=== PATIENT | female | born 1990 | race Caucasian/White ===

== ENCOUNTER → 2017-10-19 | Outpatient (CLI) | payer OTHER ==
[~2017-10-19] MED LIST: ACET-1256 PO; ALBUAER19 INH; ALPR-411 PO; AMOX875T PO; BCPILLS PO; CITA10TA4 PO; FEXO1TAB49 PO; PRED10TA PO; TRIA0.1C20 TOP
== END | disposition home or self-care (01) ==
LOC: C.LAB1850 15:01
PROVIDERS: ATTEND Obstetrics & Gynecology
DX: O99.89 Other specified diseases and conditions complicating pregnancy, childbirth and the puerperium (principal); Z3A.00 Weeks of gestation of pregnancy not specified

== ENCOUNTER → 2017-10-21 | Outpatient (CLI) | payer OTHER | END | disposition home or self-care (01) | LOC: C.LAB1850 14:44 | PROVIDERS: ATTEND Obstetrics & Gynecology | DX: O99.89 Other specified diseases and conditions complicating pregnancy, childbirth and the puerperium (principal); Z3A.00 Weeks of gestation of pregnancy not specified ==

== ENCOUNTER → 2017-10-22 | Outpatient (CLI) | payer OTHER | END | disposition home or self-care (01) | LOC: C.LAB1850 12:59 | PROVIDERS: ATTEND Obstetrics & Gynecology | DX: R39.9 Unspecified symptoms and signs involving the genitourinary system (principal) ==

== ENCOUNTER → 2017-10-23 | Outpatient (CLI) | payer OTHER | END | disposition home or self-care (01) | LOC: C.LABSPEC 16:16 | PROVIDERS: ATTEND Physician Assistant | DX: N89.8 Other specified noninflammatory disorders of vagina (principal) ==

== ENCOUNTER 2017-10-27 16:59 | Emergency (ER) | payer OTHER ==
[~2017-10-27] VITALS: Ht 167.6 cm; Wt 95.8 kg
[2017-10-27 17:08] VITALS: TEMP 36.7; Ht 167.6 cm; Wt 95.8 kg
[2017-10-27] MEDS ORDERED: ACETAMINOPHEN 500 MG TAB PO STA (17:26)
[2017-10-27] MEDS ORDERED: SODIUM CHLORIDE 0.9% 1000ML 1,000 ML IV ONE (17:30)
[2017-10-27 18:10] LABS: BASO % 0.3 %; BASO ABS # 0.03 K/uL (0-0.2); EOS % 1.5 %; EOS ABS # 0.14 K/uL (0-0.5); HEMATOCRIT 38.9 % (37-47); HEMOGLOBIN 13.2 g/dL (12.0-16.0); IG# 0.03 K/uL (0.00-0.02); LYMPH ABS # 2.41 K/uL (1.2-3.4); MEAN CELL VOLUME 87.2 fL (80-100); MEAN CORPUSCULAR HEMOGLOBIN 29.6 pg (25-34); MEAN CORPUSCULAR HGB CONC 33.9 g/dl (32-36); MEAN PLATELET VOLUME 9.1 fL (7.4-10.4); MONO % 7.1 %; MONO ABS # 0.68 K/uL (0.11-0.59); NEUT % 65.8 %; NEUT ABS # 6.35 K/uL (1.4-6.5); PLATELET COUNT 330 K/uL (130-400); RED CELL DISTRIBUTION WIDTH CV 12.1 % (11.5-14.5); RED CELL DISTRIBUTION WIDTH SD 38.4 fL (36.4-46.3); WHITE BLOOD COUNT 9.64 K/uL (4.8-10.8)
[2017-10-27 18:30] LABS: ALBUMIN 3.8 gm/dl (3.4-5.0); CALCIUM 8.9 mg/dl (8.5-10.1); CREATININE 0.64 mg/dl (0.60-1.20); POTASSIUM 3.5 mmol/L (3.5-5.1)
[2017-10-27 18:33] LABS: TOTAL PROTEIN 7.7 gm/dl (6.4-8.2)
--- NOTE | 2017-10-27 19:07 | DIAGNOSTIC IMAGING REPORT ---
LIMITED (US) (transabdominal and endovaginal scanning. CLINICAL HISTORY: . Bleeding. COMPARISON STUDY: No previous studies for comparison. FINDINGS: A single alive intrauterine was visualized. The crown-rump length measured 9 mm corresponding to an estimated postmenstrual age of 6 weeks and 6 days. A yolk sac was visualized. Incidental note is made of a maternal 13 mm right paraovarian cyst. There is a left-sided corpus luteum cyst. The heart rate was 130. There is a tiny 3 mm cystic structure just beneath the chorion. IMPRESSION: 1. Single live intrauterine . The estimated postmenstrual age is 6 weeks and 6 days 2. 3 mm subchorionic cystic structure. This is of doubtful acute clinical significance. Electronically signed by: Fly Chaparro M.D. 10/27/2017 7:06 PM Dictated Date/Time: 10/27/2017 7:03 PM
[2017-10-27 20:30] VITALS: BP 143/62; PULSE 80; O2SAT 99
--- NOTE | 2017-10-27 22:35 | EMERGENCY ROOM VISIT NOTE ---
History First contact with patient: 17:12 Chief Complaint: ED VAG BLEEDING Stated Complaint: 7WKS,POSSIBLE MISCARRIAGE,BLEEDING,CLOTS,CRAMPING History of Present Illness The patient is a 27 year old female who presents to the Emergency Room with complaints of vaginal bleeding for the past week. The patient is reportedly with her first , and is just under 7 weeks by dates. She has been in close contact with [facility] over the past week, where she has had 2 beta hCG quantitatives, one ultrasound, and one pelvic exam. She was advised to continue to monitor her symptoms, but states that today the bleeding is different. She was not seen by OB today and elected to come to the ER instead. She is not having significant pain of her abdomen. She is having the blood when she wipes after using the bathroom. She has not been soaking through pads or tampons. Patient has not had fever or chills. She is very anxious about her symptoms and rates her current discomfort a 2/10. She does not identify aggravating or alleviating factors. Review of Systems More than 10 systems were reviewed and otherwise negative with the exception of history of present illness. Past Medical/Surgical History Anxiety and depression Family History No pertinent family history Social History Smoking Status: Never Smoker Drug Use: none Marital Status: in relationship Housing Status: lives with significant other Occupation Status: employed Current/Historical Medications Scheduled Control Pills ( Control Pills), 1 TAB PO HS Citalopram Hydrobromide (Citalopram Hydrobromide), 10 MG PO HS Fexofenadine Hcl (Doreen Allergy), 180 MG PO QAM Prednisone Tab (Prednisone), 10 MG PO QAM Scheduled PRN Acetaminophen (Tylenol), 1,000 MG PO Q4H PRN for Pain Albuterol Inhaler (Ventolin Inhaler), 2 PUFFS INH QID PRN for PRN Alprazolam (Xanax), 0.25 MG PO DAILY PRN for Anxiety Amoxicillin & Pot Clavulanate (Augmentin 875-125 mg), 875 MG PO BID PRN for PRN Triamcinolone Acet 0.1% (Aristocort 0.1%), 1 APPL TOP DAILY PRN for PRN Physical Exam Vital Signs Date Time Temp Pulse Resp B/P (MAP) Pulse Ox O2 Delivery O2 Flow Rate FiO2 10/27/17 20:30 80 16 143/62 99 18 19:53 80 16 143/62 99 Room Air 10/27/17 19:01 77 16 144/78 100 Room Air 10/27/17 17:08 36.7 103 16 137/71 99 Room Air Physical Exam VITALS: Vitals are noted on the nurse's note and reviewed by myself. Vital signs stable. GENERAL: Well-developed, well-nourished, white female, who is very anxious on exam NECK: Supple without nuchal rigidity. No lymphadenopathy. No thyromegaly. Cervical spine is nontender. HEART: Regular rate and rhythm without murmurs gallops or rubs. LUNGS: Clear to auscultation bilaterally without wheezes, rales or rhonchi. No retractions or accessory muscle use. ABDOMEN: Positive normal bowel sounds x 4. Soft, nontender, without masses or organomegaly. No guarding or rebound tenderness. MUSCULOSKELETAL: No muscle atrophy, erythema, or edema noted. Full range of motion in all extremities. Medical Decision & Procedures ER Provider Diagnostic Interpretation: LIMITED (US) (transabdominal and endovaginal scanning. CLINICAL HISTORY: . Bleeding. COMPARISON STUDY: No previous studies for comparison. FINDINGS: A single alive intrauterine was visualized. The crown-rump length measured 9 mm corresponding to an estimated postmenstrual age of 6 weeks and 6 days. A yolk sac was visualized. Incidental note is made of a maternal 13 mm right paraovarian cyst. There is a left-sided corpus luteum cyst. The heart rate was 130. There is a tiny 3 mm cystic structure just beneath the chorion. IMPRESSION: 1. Single live intrauterine . The estimated postmenstrual age is 6 weeks and 6 days 2. 3 mm subchorionic cystic structure. This is of doubtful acute clinical significance. Laboratory Results 10/27/17 17:55 Red Blood Count 4.46, Mean Corpuscular Volume 87.2, Mean Corpuscular Hemoglobin 29.6, Mean Corpuscular Hemoglobin Concent 33.9, Mean Platelet Volume 9.1, Neutrophils (%) (Auto) 65.8, Lymphocytes (%) (Auto) 25.0, Monocytes (%) (Auto) 7.1, Eosinophils (%) (Auto) 1.5, Basophils (%) (Auto) 0.3, Neutrophils # (Auto) 6.35, Lymphocytes # (Auto) 2.41, Monocytes # (Auto) 0.68, Eosinophils # (Auto) 0.14, Basophils # (Auto) 0.03 10/27/17 17:54 Test 10/27/17 17:54 10/27/17 17:55 Anion Gap 7.0 mmol/L (3-11) Est Creatinine Clear Calc Drug Dose 152.6 ml/min Estimated GFR () 140.7 Estimated GFR (Non- 121.4 BUN/Creatinine Ratio 11.2 (10-20) Calcium Level 8.9 mg/dl (8.5-10.1) Total Bilirubin 0.2 mg/dl (0.2-1) Aspartate Amino Transf (AST/SGOT) 13 U/L (15-37) Alanine Aminotransferase (ALT/SGPT) 29 U/L (12-78) Alkaline Phosphatase 96 U/L (45-117) Total Protein 7.7 gm/dl (6.4-8.2) Albumin 3.8 gm/dl (3.4-5.0) Globulin 3.9 gm/dl (2.5-4.0) Albumin/Globulin Ratio 1.0 (0.9-2) Human Chorionic Gonadotropin, Quant 17101 mIU/mL White Blood Count 9.64 K/uL (4.8-10.8) Red Blood Count 4.46 M/uL (4.2-5.4) Hemoglobin 13.2 g/dL (12.0-16.0) Hematocrit 38.9 % (37-47) Mean Corpuscular Volume 87.2 fL (80-100) Mean Corpuscular Hemoglobin 29.6 pg (25-34) Mean Corpuscular Hemoglobin Concent 33.9 g/dl (32-36) Platelet Count 330 K/uL (130-400) Mean Platelet Volume 9.1 fL (7.4-10.4) Neutrophils (%) (Auto) 65.8 % Lymphocytes (%) (Auto) 25.0 % Monocytes (%) (Auto) 7.1 % Eosinophils (%) (Auto) 1.5 % Basophils (%) (Auto) 0.3 % Neutrophils # (Auto) 6.35 K/uL (1.4-6.5) Lymphocytes # (Auto) 2.41 K/uL (1.2-3.4) Monocytes # (Auto) 0.68 K/uL (0.11-0.59) Eosinophils # (Auto) 0.14 K/uL (0-0.5) Basophils # (Auto) 0.03 K/uL (0-0.2) RDW Standard Deviation 38.4 fL (36.4-46.3) RDW Coefficient of Variation 12.1 % (11.5-14.5) Immature Granulocyte % (Auto) 0.3 % Immature Granulocyte # (Auto) 0.03 K/uL (0.00-0.02) Medications Administered Medications (Trade) Dose Ordered Sig/Barbara Route Start Time Stop Time Status Last Admin Dose Admin Acetaminophen (Tylenol Tab) 1,000 mg NOW STAT PO 10/27/17 17:26 10/27/17 17:30 DC 10/27/17 17:43 1,000 MG ED Course Physical exam and history were performed. Nursing notes, EMR, and Medication List were personally reviewed. Patient appears to have reports of vaginal bleeding in the first trimester of . This is her first . She defers pelvic exam. Patient does not appear toxic. She is not soaking through pads regularly, but does report having blood every time she wipes after using the bathroom. IV access was established and labs are obtained. The patient was hydrated with normal saline and sent to ultrasound. She was given Tylenol here in the department. The patient's blood work is as above and was reviewed. She does not have a significantly elevated white blood cell count, gross anemia, bandemia, or significant electrolyte imbalance. Her hCG quantitative is just under 12,000. This is less than expected, but does represent a 3 fold increase in her hCG from a few days ago. She is blood type a positive. The ultrasound is as above and was reviewed by myself and radiology. Ultrasound shows a viable intrauterine with heart rate of 130. I had a lengthy discussion with the patient and her significant other regarding findings today. The patient appears to have a viable intrauterine at this point. She will need very close follow-up with [facility] however, as her hCG is slightly less than expected based on her dates of 6 weeks and 6 days. Patient will need repeat ultrasound and repeat blood work which can be facilitated as an outpatient. She was given thorough instructions about returning to the ER with any new, worsening, or concerning symptoms. The patient voiced understanding and felt much better after evaluation today. Her anxiety was much less and she rated her discomfort as 0/10 at the time of departure. The chart was completed utilizing [employer] Speech Voice Recognition Software. Grammatical errors, random word insertions, pronoun errors, and incomplete sentences are an occasional consequence of this system due to software limitations, ambient noise, and hardware issues. Any formal questions or concerns about the content, text, or information contained within the body of this dictation should be directly addressed to the provider for clarification. . Medical Decision Differential diagnosis: Etiologies such as ectopic , dysfunction uterine bleeding, bleeding dyscrasia, trauma, infection, as well as others were entertained. Impression Primary Impression: First trimester bleeding Departure Information Dispostion Home / Self-Care Condition GOOD Forms HOME CARE DOCUMENTATION FORM, IMPORTANT VISIT INFORMATION Patient Instructions My [facility] Additional Instructions You were seen and evaluated today on an emergency basis only. This is not a substitute for, or an effort to provide, complete comprehensive medical care. It is not possible to recognize and treat all injuries or illnesses in a single emergency department visit. For this reason it is recommended that you followup with your [facility] by telephone tomorrow to arrange appropriate follow-up. You are welcome to return to the emergency department anytime with new, worsening, or concerning symptoms.
== END 2017-10-27 20:30 | disposition home or self-care (01) ==
LOC: C.EDB 17:01 → C.EDA 20:30
DX: Z34.01 Encounter for supervision of normal first pregnancy, first trimester (principal)

== ENCOUNTER → 2017-11-04 | Outpatient (CLI) | payer OTHER ==
[2017-11-04 16:38] LABS: BASO % 0.3 %; BASO ABS # 0.03 K/uL (0-0.2); EOS % 1.3 %; EOS ABS # 0.12 K/uL (0-0.5); HEMATOCRIT 38.4 % (37-47); HEMOGLOBIN 13.2 g/dL (12.0-16.0); IG# 0.02 K/uL (0.00-0.02); LYMPH % 26.1 %; LYMPH ABS # 2.38 K/uL (1.2-3.4); MEAN CELL VOLUME 87.3 fL (80-100); MEAN CORPUSCULAR HGB CONC 34.4 g/dl (32-36); MEAN PLATELET VOLUME 9.3 fL (7.4-10.4); MONO % 5.8 %; MONO ABS # 0.53 K/uL (0.11-0.59); NEUT % 66.3 %; NEUT ABS # 6.04 K/uL (1.4-6.5); PLATELET COUNT 352 K/uL (130-400); RED CELL DISTRIBUTION WIDTH SD 38.5 fL (36.4-46.3); WHITE BLOOD COUNT 9.12 K/uL (4.8-10.8)
== END | disposition home or self-care (01) ==
LOC: C.LAB1850 15:24
PROVIDERS: ATTEND Obstetrics & Gynecology
DX: Z34.01 Encounter for supervision of normal first pregnancy, first trimester (principal)

== ENCOUNTER → 2018-02-15 | Outpatient (CLI) | payer OTHER | END | disposition home or self-care (01) | LOC: C.LABSPEC 11:30 | PROVIDERS: ATTEND Urology | DX: R39.15 Urgency of urination (principal) ==

== ENCOUNTER → 2018-03-03 | Outpatient (CLI) | payer OTHER ==
--- NOTE | 2018-03-03 09:09 | DIAGNOSTIC IMAGING REPORT ---
RENAL ULTRASOUND CLINICAL HISTORY: Urinary tract infection, antepartum. COMPARISON STUDY: Renal ultrasound January 05, 2018. TECHNIQUE: Sonography of the kidneys and the urinary bladder was performed. FINDINGS: The right kidney measures 13.7 x 5.1 x 7.2 cm and the left measures 11.8 x 6.2 x 6.7 cm. There is no hydronephrosis. No calculi or masses are identified. Renal echogenicity, size and cortical thickness are normal. Both ureteral jets were identified. IMPRESSION: Normal renal ultrasound. No hydronephrosis. Electronically signed by: Diego Mcguire M.D. 03/03/2018 9:08 AM Dictated Date/Time: 03/03/2018 9:06 AM
== END | disposition home or self-care (01) ==
LOC: C.ULTR 08:37
PROVIDERS: ATTEND Urology
DX: O23.40 Unspecified infection of urinary tract in pregnancy, unspecified trimester (principal); Z3A.00 Weeks of gestation of pregnancy not specified